=== PATIENT | female | born 1950 | race Caucasian/White ===

== ENCOUNTER → 2017-12-05 | Outpatient (CLI) | payer MEDICARE ==
--- NOTE | 2017-12-05 12:18 | BD ---
EXAMINATION TYPE: Axial Bone Density DATE OF EXAM: 12/05/2017 COMPARISON: 07/15/2015 CLINICAL HISTORY: Postmenopausal female. Osteoporosis screening. Height: 52.7 IN Weight: 189 LBS FRAX RISK QUESTIONS: Alcohol (3 or more units per day): NO Family History (Parent hip fracture): NO Glucocorticoids (More than 3mos): NO (Ex: prednisone, prednisolone, methylprednisolone, dexamethasone, and hydrocortisone). History of Fracture in Adulthood: NO Secondary Osteoporosis: 1. Type 1 Diabetes: NO 2. Hyperthyroidism: NO 3. Menopause before 45: NO AGE 48 4. Malnutrition: NO 5. Chronic liver disease: NO Rheumatoid Arthritis: NO Current Tobacco Use: NO RISK FACTORS HISTORY OF: Active: YES Postmenopausal woman: AGE 48 MEDICATIONS: Thyroid Medications: YES Which medication: Levothyroxine How Lon YEARS Additional Medications: LEVOTHYROXINE, BLOOD PRESSURE MEDS, RED YEAST RICE, COQ10, KRILL OIL, 81 MG A SPIRIN, EXAM MEASUREMENTS: Bone mineral densitometry was performed using the [employer] System. Bone mineral density as measured about the Lumbar spine is: ----- L1-L4(G/cm2): 1.239 T Score Values are as follows: ----- L2: 0.1 ----- L3: 0.8 ----- L4: 0.2 ----- L1-L4: 0.5 Bone mineral density has: Increased 2.0% since study of: 07/15/2015 Bone mineral density about the R hip (g/cm2): 1.042 Bone mineral density about the L hip (g/cm2): 1.009 T Score values are as follows: -----R Neck: 0.0 -----L Neck: -0.2 -----R Total: 0.6 -----L Total: 0.8 Bone mineral density has: Decreased -1.0% since study of: 07/15/2015 IMPRESSION: Normal (Values between +1 and -1 indicate normal bone mass). Consider repeating this study in 5 year s or sooner if there is some new clinical indication. NOTE: T-SCORE=SD OF THE YOUNG ADULT MEAN.
--- NOTE | 2017-12-06 09:00 | MM ---
Reason for exam: screening (asymptomatic). Last mammogram was performed 1 year and 4 months ago. History: Patient is postmenopausal and history of other cancer. Physical Findings: A clinical breast exam by your physician is recommended on an annual basis and results should be correlated with mammographic findings. MG 3D Screening Mammo W/Cad Bilateral CC and MLO view(s) were taken. Prior study comparison: July 28, 2016, bilateral MG 3d screening mammo w/cad. July 15, 2015, bilateral MG screening mammo w CAD. There are scattered fibroglandular densities. There is chronic nodularity bilaterally. There is no discrete abnormality. ASSESSMENT: Benign, BI-RAD 2 RECOMMENDATION: Routine screening mammogram of both breasts in 1 year.
== END | disposition home or self-care (01) ==
LOC: RADMAMWWP 10:13
PROVIDERS: ATTEND Family Medicine
DX: Z12.31 Encounter for screening mammogram for malignant neoplasm of breast (principal); Z78.0 Asymptomatic menopausal state
CPT/HCPCS: 77063; 77067; 77080

== ENCOUNTER → 2018-04-29 | Outpatient (CLI) | payer MEDICARE ==
--- NOTE | 2018-04-29 12:52 | XR ---
EXAMINATION TYPE: XR knee complete RT DATE OF EXAM: 04/29/2018 COMPARISON: NONE HISTORY: Pain TECHNIQUE: 3 views are submitted. FINDINGS: There is narrowing the medial compartment knee joint and patellofemoral with hypertrophic spurring. T iny amount of fluid in suprapatellar bursa.. Osseous structures are intact. No acute fracture seen. IMPRESSION: 1. Correlate for osteoarthritis.
--- NOTE | 2018-04-29 12:54 | XR ---
EXAM TYPE: LUMBAR SPINE X RAY SERIES COMPARISON: 04/06/2015 HISTORY: Back pain TECHNIQUE: 4 views are submitted. FINDINGS: Alignment is anatomic. The pedicles are intact. The transverse processes are intact. There is post surgical change in the right upper quadrant. Hypertrophic spurring at nearly all levels. Degenerative disc disease at all levels with most marked findings at L4-5 and L5-S1 with facet arthropathy. There is a minimal anterolisthesis of L5 on S1. IMPRESSION: 1. Multilevel degenerative disc disease and facet arthropathy with minimal grade 1 anterolisthesis L5 on S1 appears similar to the prior exam. 2. Right upper quadrant calcifications may represent bowel content. Renal stone not excluded..
== END | disposition home or self-care (01) ==
LOC: RADXRMAIN 11:28
PROVIDERS: ATTEND Family Medicine
DX: M51.16 Intervertebral disc disorders with radiculopathy, lumbar region (principal); M46.96 Unspecified inflammatory spondylopathy, lumbar region; M17.11 Unilateral primary osteoarthritis, right knee
CPT/HCPCS: 72100

== ENCOUNTER → 2019-01-07 | Outpatient (CLI) | payer MEDICARE ==
--- NOTE | 2019-01-08 13:57 | MM ---
Reason for exam: screening (asymptomatic). Last mammogram was performed 1 year and 1 month ago. History: Patient is postmenopausal and history of other cancer. Physical Findings: A clinical breast exam by your physician is recommended on an annual basis and results should be correlated with mammographic findings. MG 3D Screening Mammo W/Cad Bilateral CC and MLO view(s) were taken. Prior study comparison: December 05, 2017, bilateral MG 3d screening mammo w/cad. July 28, 2016, bilateral MG 3d screening mammo w/cad. There are scattered fibroglandular densities. No suspicious abnormality. No significant new finding when compared to prior studies. ASSESSMENT: Negative, BI-RAD 1 RECOMMENDATION: Routine screening mammogram of both breasts in 1 year.
== END | disposition home or self-care (01) ==
LOC: RADMAMWWP 12:30
PROVIDERS: ATTEND Family Medicine
DX: Z12.31 Encounter for screening mammogram for malignant neoplasm of breast (principal)
CPT/HCPCS: 77063; 77067

== ENCOUNTER → 2020-03-10 | Outpatient (CLI) | payer MEDICARE ==
--- NOTE | 2020-03-10 16:10 | BD ---
EXAMINATION TYPE: Axial Bone Density DATE OF EXAM: 03/10/2020 COMPARISON: 12/05/2017 CLINICAL HISTORY: 69-year-old female postmenopausal screening Height: 62.5 IN Weight: 192 LBS RISK FACTORS HISTORY OF: Active: YES Postmenopausal woman: AGE 48 Take estrogen and/or progesterone medications: NOT NOW How long: AGE 50-51 MEDICATIONS: Thyroid Medications: YES Which medication: Levothyroxine How Lon YEARS Additional Medications: VIT D, LEVOTHYROXINE, BLOOD PRESSURE, OMEPRAZOLE, HAIR SKIN AND NAILS, 81 ASP IRIN, KRILL OIL, COQ10, EXAM MEASUREMENTS: Bone mineral densitometry was performed using the [employer] System. Bone mineral density as measured about the Lumbar spine is: ----- L1-L4(G/cm2): 1.179 T Score Values are as follows: ----- L2: 0.2 ----- L3: 0.0 ----- L4: -0.4 ----- L1-L4: 0.0 Bone mineral density has: Decreased -4.1% since study of: 12/05/2017 Bone mineral density about the R hip (g/cm2): 1.045 Bone mineral density about the L hip (g/cm2): 0.930 T Score values are as follows: -----R Neck: 0.0 -----L Neck: -0.8 -----R Total: 0.1 -----L Total: 0.1 Bone mineral density has: Decreased -6.6% since study of: 12/05/2017 IMPRESSION: Normal (Values between +1 and -1 indicate normal bone mass). Consider repeating this study in 5 year s or sooner if there is some new clinical indication. NOTE: T-SCORE=SD OF THE YOUNG ADULT MEAN.
--- NOTE | 2020-03-12 08:51 | MM ---
Reason for exam: screening (asymptomatic). Last mammogram was performed 1 year and 2 months ago. History: Patient is postmenopausal and history of other cancer. Physical Findings: A clinical breast exam by your physician is recommended on an annual basis and results should be correlated with mammographic findings. MG 3D Screening Mammo W/Cad Bilateral CC and MLO view(s) were taken. Prior study comparison: January 07, 2019, bilateral MG 3d screening mammo w/cad. December 05, 2017, bilateral MG 3d screening mammo w/cad. There are scattered fibroglandular densities. There is chronic nodularity in the left breast. Tiny less than 5mm density is new right breast 9 o'clock but shows no suspicious mass on 3D. 6 month follow up recommended. ASSESSMENT: Probably benign, BI-RAD 3 RECOMMENDATION: Follow-up diagnostic mammogram of the right breast in 6 months. (3D)
== END | disposition home or self-care (01) ==
LOC: RADMAMWWP 12:55
PROVIDERS: ATTEND Family Medicine
DX: Z12.31 Encounter for screening mammogram for malignant neoplasm of breast (principal); Z78.0 Asymptomatic menopausal state
CPT/HCPCS: 77063; 77067; 77080

== ENCOUNTER → 2020-09-06 | Outpatient (CLI) | payer MEDICARE ==
--- NOTE | 2020-09-06 10:03 | MM ---
Reason for exam: follow-up at short interval from prior study. Last mammogram was performed 6 months ago. History: Patient is postmenopausal and history of other cancer. Physical Findings: Nurse did not find any significant physical abnormalities on exam. MG 3D Diag Mammo W/Cad RT CC and MLO view(s) were taken of the right breast. Prior study comparison: March 10, 2020, bilateral MG 3d screening mammo w/cad. January 07, 2019, bilateral MG 3d screening mammo w/cad. There are scattered fibroglandular densities. Nodularity lateral right breast at a middle depth measures 5mm and is stable for 6 months. Smaller nodularity is noted on older priors on 3D images. This area has become more pronounced but again is stable for 6 months. These results were verbally communicated with the patient and result sheet given to the patient on 09/06/20. ASSESSMENT: Probably benign, BI-RAD 3 RECOMMENDATION: Follow-up diagnostic mammogram of both breasts in 6 months.
== END | disposition home or self-care (01) ==
LOC: RADMAMWWP 08:45
PROVIDERS: ATTEND Family Medicine
DX: R92.8 Other abnormal and inconclusive findings on diagnostic imaging of breast (principal)
CPT/HCPCS: 77065; G0279; 77061

== ENCOUNTER → 2021-03-16 | Outpatient (CLI) | payer MEDICARE ==
--- NOTE | 2021-03-17 09:06 | MM ---
Reason for exam: follow-up at short interval from prior study. Last mammogram was performed 6 months ago. History: Patient is postmenopausal and has history of other cancer at age 65. Physical Findings: Nurse did not find any significant physical abnormalities on exam. MG 3D Diag Mammo W/Cad RIZWANA Bilateral CC and MLO view(s) were taken. Prior study comparison: September 06, 2020, right breast MG 3d diag mammo w/cad RT. March 10, 2020, bilateral MG 3d screening mammo w/cad. There are scattered fibroglandular densities. There is no discrete abnormality. These results were verbally communicated with the patient and result sheet given to the patient on 03/16/21. ASSESSMENT: Negative, BI-RAD 1 RECOMMENDATION: Routine screening mammogram of both breasts in 1 year.
== END | disposition home or self-care (01) ==
LOC: RADMAMWWP 12:51
PROVIDERS: ATTEND Family Medicine
DX: R92.8 Other abnormal and inconclusive findings on diagnostic imaging of breast (principal)
CPT/HCPCS: 77066; G0279; 77062

== ENCOUNTER → 2021-05-21 | Outpatient (CLI) | payer MEDICARE | END | disposition home or self-care (01) | LOC: RADMRIMAIN 12:49 | PROVIDERS: ATTEND Family Medicine | DX: Z53.9 Procedure and treatment not carried out, unspecified reason (principal) ==

== ENCOUNTER → 2021-05-24 | Outpatient (CLI) | payer MEDICARE ==
--- NOTE | 2021-05-24 12:52 | XR ---
Left ankle HISTORY: Pain, remote history of fracture 3 views of the left ankle, no comparisons Distortion of the distal fibula and tibia at the diaphyseal levels is likely due to remote trauma. Th ere is mild soft tissue swelling. Alignment, joint spaces, bone mineralization are maintained. There is a plantar calcaneal spur. Spurring at the tibiotalar joint. IMPRESSION: Mild soft tissue swelling. Osteoarthritis. Remote trauma. Plantar spur.
--- NOTE | 2021-05-24 13:00 | XR ---
Left knee HISTORY: Left knee pain 3 views of the left knee There is marginal spurring and joint space loss especially medial compartment, patellofemoral joint. Alignment and bone mineralization are maintained. No fracture or dislocation, no evident joint effusi on. IMPRESSION: Osteoarthritis.
== END | disposition home or self-care (01) ==
LOC: RADXRMAIN 10:56
PROVIDERS: ATTEND Family Medicine
DX: M17.12 Unilateral primary osteoarthritis, left knee (principal); M19.072 Primary osteoarthritis, left ankle and foot

== ENCOUNTER 2021-07-19 10:09 | Day surgery (SDC) | payer MEDICARE ==
[2021-07-15 12:16] VITALS: BMI 32.5
[~2021-07-19 10:09] MED LIST: LACTATED RINGERS 1,000 ML IV SCH; LIDOCAINE 1% (10MG/ML) FOR IV START INTRADERMA PRN
[2021-07-19 10:51] VITALS: TEMP 98.1
[2021-07-19] MEDS ORDERED: PROPOFOL 10 MG/ML 20 ML VIAL IV ONE (11:25)
--- NOTE | 2021-07-19 11:28 | P.GSHP ---
History of Present Illness H&P Date: 07/19/21 Chief Complaint: Abnormal stool test Patient here today for colonoscopy. Patient had recent stool studies showing an abnormal result. She does not see any active bleeding. No constipation or diarrhea. Family history of bowel cancer in her father. Last colonoscopy 10 years ago normal. Past Medical History Past Medical History: Cancer, GERD/Reflux, Hypertension, Osteoarthritis (OA), Thyroid Disorder Additional Past Medical History / Comment(s): loose stools, irregular bowel movements, hx skin cancer, History of Any Multi-Drug Resistant Organisms: None Reported Past Surgical History: Section, Cholecystectomy Additional Past Surgical History / Comment(s): sinus surgery Past Anesthesia/Blood Transfusion Reactions: No Reported Reaction Smoking Status: Never smoker - Past Family History Father Family Medical History: Cancer Mother Additional Family Medical History / Comment(s): brain aneurysm Medications and Allergies Home Medications Medication Instructions Recorded Confirmed Type Aspirin [Adult Low Dose Aspirin EC] 81 mg PO DAILY 07/15/21 07/19/21 History Cholecalciferol [Vitamin D3 (25 50 mcg PO DAILY 07/15/21 07/19/21 History Mcg = 1000 Iu)] Glucosamine/Chondr Lemos A Sod [Osteo 1 each PO DAILY 07/15/21 07/19/21 History Bi-Flex Caplet] Krill Oil 500 mg PO DAILY 07/15/21 07/19/21 History Levothyroxine Sodium [Synthroid] 50 mcg PO DAILY 07/15/21 07/19/21 History Melatonin 9 mg PO HS 07/15/21 07/19/21 History Omeprazole [PriLOSEC] 20 mg PO AC-BRKFST 07/15/21 07/19/21 History Psyllium Husk (with Sugar) 1 applicate PO DAILY 07/15/21 07/19/21 History [Metamucil Powder] Ubidecarenone [Co Q-10] 200 mg PO DAILY 07/15/21 07/19/21 History amLODIPine [Norvasc] 5 mg PO DAILY 07/15/21 07/19/21 History lisinopriL [Zestril] 20 mg PO DAILY 07/15/21 07/19/21 History Allergies Allergy/AdvReac Type Severity Reaction Status Date / Time petty Allergy mouth sores Verified 07/19/21 10:45 Penicillins Allergy Rash/Hives Verified 07/19/21 10:45 Sulfa (Sulfonamide Allergy Rash/Hives Verified 07/19/21 10:45 Antibiotics) benzocaine AdvReac Swelling Verified 07/19/21 10:45 Surgical - Exam Vital Signs Temp Pulse Resp BP Pulse Ox 98.1 F 90 16 131/66 96 07/19/21 10:46 07/19/21 10:46 07/19/21 10:46 07/19/21 10:46 07/19/21 10:46 Physical exam: General: Well-developed, well-nourished HEENT: Normocephalic, sclerae nonicteric Abdomen: Nontender, nondistended Extremities: No edema Neuro: Alert and oriented Assessment and Plan (1) Abnormal stool test Narrative/Plan: Will proceed with colonoscopy at this time Current Visit: Yes Status: Acute Code(s): R19.5 - OTHER FECAL ABNORMALITIES SNOMED Code(s): 647026893
--- NOTE | 2021-07-19 11:48 | P.PCN ---
Date of Procedure: 07/19/21 Procedure(s) Performed: PREOPERATIVE DIAGNOSIS: Abnormal stool study POSTOPERATIVE DIAGNOSIS: Polyps, diverticulosis, hemorrhoids PROCEDURE: Colonoscopy with snare polypectomy ANESTHESIA: MAC SURGEON: Messi Mota M.D. SPECIMENS: Descending and sigmoid colon polyp ENDOSCOPIC PROCEDURE: The patient was placed on the endoscopy table in the left decubitus position. The Olympus colonoscope was inserted into the anus and passed under direct visualization to the base of the cecum. The appendiceal orifice was visualized. From that point the scope was slowly withdrawn inspecting all surfaces carefully. There were no neoplastic inflammatory or polypoid lesions throughout the cecum, ascending, and transverse colon. In the descending colon a small polyp was seen and removed using the snare with cautery technique. Another small polyp was seen in the sigmoid colon and removed using the snare with cautery technique. The remainder of the sigmoid and rectum was normal. There was moderate scattered diverticulosis. The patient had small internal and external hemorrhoids without any evidence of recent or active bleeding. The patient was taken to the recovery room in stable condition per anesthesia guidelines. RECOMMENDATIONS: Await biopsy results. Resume diet. Anticipate repeat colonoscopy 5 years.
[2021-07-19 12:10] VITALS: BP 107/68; PULSE 70; RESP 20
== END 2021-07-19 12:48 | disposition home or self-care (01) ==
LOC: ORWHC2ENDO 10:09
PROVIDERS: ATTEND Surgery
DX: K57.90 Diverticulosis of intestine, part unspecified, without perforation or abscess without bleeding (principal); K64.9 Unspecified hemorrhoids
CPT/HCPCS: 45385; J2704; 88305

== ENCOUNTER → 2022-04-04 | Outpatient (CLI) | payer MEDICARE ==
--- NOTE | 2022-04-07 12:59 | BD ---
EXAMINATION TYPE: Axial Bone Density DATE OF EXAM: 04/06/2022 COMPARISON: NONE CLINICAL HISTORY: 71 years year old Female. ICD-10 CODE: Z78.0 ASYMPTOMATIC MENOPAUSAL STATE Height: 63 Weight: 195 FRAX RISK QUESTIONS: Alcohol (3 or more units per day): no Family History (Parent hip fracture): no Glucocorticoids (More than 3mos): no (Ex: prednisone, prednisolone, methylprednisolone, dexamethasone, and hydrocortisone). History of Fracture in Adulthood: yes Secondary Osteoporosis: 1. Type 1 Diabetes: no 2. Hyperthyroidism: no 3. Menopause before 45: no 4. Malnutrition: no 5. Chronic liver disease: no Rheumatoid Arthritis: no Current Tobacco Use: no RISK FACTORS HISTORY OF: Surgery to Spine/Hip(right/left)/Wrist (right/left): no Family History of Osteoporosis: no Active: no Diet low in dairy products/other sources of calcium: no Postmenopausal woman: yes Lost more than 2 inches in height since high school: no MEDICATIONS: Thyroid Medications: levothyroxine How Long: years Additional History: EXAM MEASUREMENTS: Bone mineral densitometry was performed using the [employer] System. Bone mineral density as measured about the Lumbar spine is: ----- L1-L4(G/cm2): 1.208 T Score Values are as follows: ----- L1: 0.8 ----- L2: 0.1 ----- L3: 0.1 ----- L4: -0.1 ----- L1-L4: 0.2 Bone mineral density has: decreased -3.3 % since study of: 12.05.2017 Bone mineral density about the R hip (g/cm2): 0.892 Bone mineral density about the L hip (g/cm2): 0.946 T Score values are as follows: -----R Neck: -1.0 -----L Neck: -0.7 -----R Total: -0.3 -----L Total: 0.4 Bone mineral density has: decreased -7.1 % since study of: 12.05.2017 FRAX%s: The graph provided illustrates a 13.9% chance for a major osteoporotic fx and a 1.7% chance f or the hips probability for fx in 10 years time. IMPRESSION: Normal (Values between +1 and -1 indicate normal bone mass). Consider repeating this study in 5 year s or sooner if there is some new clinical indication. NOTE: T-SCORE=SD OF THE YOUNG ADULT MEAN.
== END | disposition home or self-care (01) ==
LOC: RADMAMWWP 21:56
PROVIDERS: ATTEND Family Medicine
DX: Z12.31 Encounter for screening mammogram for malignant neoplasm of breast (principal); Z78.0 Asymptomatic menopausal state
CPT/HCPCS: 77063; 77067; 77080

== ENCOUNTER → 2023-04-05 | Outpatient (CLI) | payer MEDICARE ==
--- NOTE | 2023-04-06 09:02 | MM ---
Reason for Exam: Screening (asymptomatic). Last screening mammogram was performed 12 month(s) ago. Patient History: Menarche at age 10. First Full-Term at age 26. Postmenopausal. Other cancer, age 65. Risk Values: Armida 5 year model risk: 2.0%. NCI Lifetime model risk: 4.5%. Prior Study Comparison: 09/06/2020 Right Diagnostic Mammogram, [facility]. 03/16/2021 Bilateral Diagnostic Mammogram, [facility]. 04/04/2022 Bilateral MG 3D screening mammo w/cad, [facility]. Tissue Density: The breast tissue is almost entirely fat. Findings: Analyzed By CAD. There is no suspicious group of microcalcifications or new suspicious mass. Benign-appearing calcifications bilaterally. Overall Assessment: Benign, BI-RAD 2 Management: Screening Mammogram of both breasts in [address] [facility] will attempt to contact patient to return for supplemental views and ultrasound if indicated. Patient should continue monthly self-breast exams. A clinical breast exam by your physician is recommended on an annual basis. This exam should not preclude additional follow-up of suspicious palpable abnormalities. Note on Armida scores and lifetime risk: 1. A Armida score greater than 3% is considered moderate risk. If this is the case, consider specialist referral to assess eligibility for a risk reducing agent. 2. If overall lifetime risk for the development of breast cancer is 20% or higher, the patient may qualify for future screening with alternating mammogram and breast MRI. Electronically signed and approved by: Michael Pham DO
== END | disposition home or self-care (01) ==
LOC: RADMAMWWP 10:03
PROVIDERS: ATTEND Family Medicine
DX: Z12.31 Encounter for screening mammogram for malignant neoplasm of breast (principal); Z78.0 Asymptomatic menopausal state
CPT/HCPCS: 77063; 77067

== ENCOUNTER → 2023-07-02 | Outpatient (CLI) | payer MEDICARE ==
--- NOTE | 2023-07-02 11:21 | XR ---
EXAMINATION TYPE: XR ankle complete RT DATE OF EXAM: 07/02/2023 COMPARISON: NONE HISTORY: Pain FINDINGS: Three views of the ankle demonstrate the ankle mortise to be intact and symmetric. The joint spaces are preserved. The osseous structures are intact. A calcaneal spur. Bony density along the dorsal t alus. IMPRESSION: 1. On the lateral view there is a linear bony density along the dorsum of the talus. Chip or avulsion fracture in the differential diagnosis. Correlate with point tenderness. Consider follow-up CT scan.
--- NOTE | 2023-07-02 11:26 | XR ---
EXAMINATION TYPE: XR foot complete RT DATE OF EXAM: 07/02/2023 COMPARISON: NONE HISTORY: Pain TECHNIQUE: Three views are submitted. FINDINGS: The osseous structures are intact. There is no acute fracture or dislocation. Hypertrophic first d igit MTP joint arthropathy. Hammertoe deformities noted. Pes planus deformity with moderate size calc aneal spur. The bony density along the dorsum of the talus. Limited assessment of the phalanx of the fourth and fifth digit due to positioning. Diffuse osteopenia. Small spur involving the base of fifth metatarsal. IMPRESSION: 1. Bony density along the dorsum of the talus suspicious for chip or avulsion fracture. Correlate wit h point tenderness.
--- NOTE | 2023-07-02 11:28 | XR ---
EXAMINATION TYPE: XR wrist complete RT DATE OF EXAM: 07/02/2023 COMPARISON: NONE HISTORY: Pain TECHNIQUE: Four views submitted. FINDINGS: The osseous structures are intact. Diffuse osteopenia. Severe arthropathy first carpometacarpal and t rapezium scaphoid joints. Mild radiocarpal joint narrowing.. IMPRESSION: 1. No definite acute fracture or dislocation if symptoms persist, follow-up study in 7 to 10 days wo uld be suggested
== END | disposition home or self-care (01) ==
LOC: RADXRMAIN 10:52
PROVIDERS: ATTEND Family Medicine
DX: M25.571 Pain in right ankle and joints of right foot (principal); M25.531 Pain in right wrist

== ENCOUNTER 2023-11-14 11:05 | Emergency (ER) | payer MEDICARE ==
--- NOTE | 2023-11-14 11:15 | ED ---
Abdominal Pain HPI - General Source: patient, family, RN notes reviewed Mode of arrival: wheelchair Limitations: no limitations <Michelle Calvillo - Last Filed: 11/14/23 11:14> - General Source: patient, family, RN notes reviewed Mode of arrival: wheelchair <Liliana Ribeiro - Last Filed: 11/14/23 16:46> - General Stated Complaint: Abd Pain Time Seen by Provider: 11/14/23 11:14 - History of Present Illness Initial Comments: Quick note: 72-year-old female presented to the ER with chief complaint of abdominal pain. She states that started around 8 AM. She also was endorsing nausea and vomiting. Denies any fevers. (Michelle Calvillo) 72-year-old female with history of hypertension presenting with abdominal pain. States that she woke up this morning and shortly after began to experience nausea and vomiting. States the pain is in the bilateral lower abdomen and radiates to the back. States the pain is about an 8 out of 10 currently. She also reports she feels as though she is urinating less than normal today. Last bowel movement was today but was small and hard. Patient reports history of cholecystectomy. (Liliana Ribeiro) - Related Data Home Medications Medication Instructions Recorded Confirmed Aspirin [Adult Low Dose Aspirin EC] 81 mg PO DAILY 07/15/21 07/19/21 Cholecalciferol [Vitamin D3 (25 50 mcg PO DAILY 07/15/21 07/19/21 Mcg = 1000 Iu)] Glucosamine/Chondr Lemos A Sod [Osteo 1 each PO DAILY 07/15/21 07/19/21 Bi-Flex Caplet] Krill Oil 500 mg PO DAILY 07/15/21 07/19/21 Levothyroxine Sodium [Synthroid] 50 mcg PO DAILY 07/15/21 07/19/21 Melatonin 9 mg PO HS 07/15/21 07/19/21 Omeprazole [PriLOSEC] 20 mg PO AC-BRKFST 07/15/21 07/19/21 Psyllium Husk (with Sugar) 1 applicate PO DAILY 07/15/21 07/19/21 [Metamucil Powder] Ubidecarenone [Co Q-10] 200 mg PO DAILY 07/15/21 07/19/21 amLODIPine [Norvasc] 5 mg PO DAILY 07/15/21 07/19/21 lisinopriL [Zestril] 20 mg PO DAILY 07/15/21 07/19/21 Previous Rx's Medication Instructions Recorded Ondansetron Odt [Zofran Odt] 4 mg PO Q8HR PRN #10 tab 11/14/23 Tamsulosin [Flomax] 0.4 mg PO DAILY #7 cap 11/14/23 Allergies Allergy/AdvReac Type Severity Reaction Status Date / Time petty Allergy mouth sores Verified 11/14/23 11:47 Penicillins Allergy Rash/Hives Verified 11/14/23 11:47 Sulfa (Sulfonamide Allergy Rash/Hives Verified 11/14/23 11:47 Antibiotics) benzocaine AdvReac Swelling Verified 11/14/23 11:47 Review of Systems ROS Other: All systems not noted in ROS Statement are negative. <Michelle Calvillo - Last Filed: 11/14/23 11:14> ROS Other: All systems not noted in ROS Statement are negative. <Liliana Ribeiro - Last Filed: 11/14/23 16:46> ROS Statement: Those systems with pertinent positive or pertinent negative responses have been documented in the HPI. General Exam <Michelle Calvillo - Last Filed: 11/14/23 11:14> General appearance: alert, in no apparent distress Cardiovascular Exam: Present: regular rate, normal rhythm, normal heart sounds. Absent: systolic murmur, diastolic murmur, rubs, gallop, clicks GI/Abdominal exam: Present: soft, normal bowel sounds. Absent: distended, tenderness, guarding, rebound, rigid Back exam: Absent: CVA tenderness (R), CVA tenderness (L) Neurological exam: Present: alert, oriented X3 Psychiatric exam: Present: normal affect, normal mood Skin exam: Present: warm, dry, intact, normal color. Absent: rash <Liliana Ribeiro - Last Filed: 11/14/23 16:46> - General Exam Comments Initial Comments: Visual Physical Exam Vital signs reviewed General: Diaphoretic and ill-appearing Head: Normocephalic, atraumatic Eyes: PERRLA, EOMI ENT: Airway patent Chest: Nonlabored breathing Skin: No visual rash, normal skin tone Neuro: Alert and oriented 3 Musculoskeletal: No gross abnormalities (Michelle Calvillo) Course Vital Signs 11/14/23 11/14/23 11:41 13:26 Temperature 97.7 F Pulse Rate 64 93 Respiratory 18 16 Rate Blood Pressure 116/87 133/78 O2 Sat by Pulse 97 96 Oximetry Medical Decision Making <Michelle Calvillo - Last Filed: 11/14/23 11:14> - Lab Data Result diagrams: 11/14/23 12:24 11/14/23 12:24 - EKG Data -: EKG Interpreted by Me <Liliana Ribeiro - Last Filed: 11/14/23 16:46> - Medical Decision Making I performed the quick note portion of this chart. Electronically signed by Michelle Calvillo PA-C (Michelle Calvillo) Was pt. sent in by a medical professional or institution (MIRELLA Sierra, CLARIFICATION OPERATOR, urgent care, hospital, or detention...) When possible be specific @ -[No] Did you speak to anyone other than the patient for history (EMS, parent, family, police, friend...)? What history was obtained from this source @ -[No] Did you review nursing and triage notes (agree or disagree)? Why? @ -[I reviewed and agree with nursing and triage notes] Were old charts reviewed (outside hosp., previous admission, EMS record, old EKG, old radiological studies, urgent care reports/EKG's, detention records)? Report findings @ -[No old charts were reviewed] Differential Diagnosis (chest pain, altered mental status, abdominal pain women, abdominal pain men, vaginal bleeding, weakness, fever, dyspnea, syncope, headache, dizziness, GI bleed, back pain, seizure, CVA, palpatations, mental health, musculoskeletal)? @ -Differential Abdominal Pain Women: Appendicitis, Cholecystitis, diverticulosis, ischemic bowel, pancreatitis, hepatitis, UTI, gastroenteritis, AAA, incarcerated hernia, bowel obstruction, constipation, inflammatory bowel, hepatitis, peptic ulcer disease, splenic infarction, perforated viscus, vulvitis, ovarian torsion, PID, kidney stone, placenta abruption, this is not meant to be an all-inclusive list EKG interpreted by me (3pts min.). @ -[As above] X-rays interpreted by me (1pt min.). @ -[None done] CT interpreted by me (1pt min.). @ -CT abdomen pelvis positive for 6 mm right-sided kidney stone U/S interpreted by me (1pt. min.). @ -[None done] What testing was considered but not performed or refused? (CT, X-rays, U/S, labs)? Why? @ -[None] What meds were considered but not given or refused? Why? @ -Patient offered narcotics for pain patient declines. Discussed preference for narcotics over Toradol due to patient has been, patient shows understanding of risks and prefers Toradol and Tylenol. Did you discuss the management of the patient with other professionals (professionals i.e. , PA, CLARIFICATION OPERATOR, lab, RT, psych nurse, social work associate, program schedule clerk, teacher, chairman & chief executive officer, case filler)? Give summary @ -[No] Was smoking cessation discussed for >3mins.? @ -[No] Was critical care preformed (if so, how long)? @ -[No] Were there social determinants of health that impacted care today? How? (Homelessness, low income, unemployed, alcoholism, drug addiction, transportation, low edu. Level, literacy, decrease access to med. care, long-term, rehab)? @ -[No] Was there de-escalation of care discussed even if they declined (Discuss DNR or withdrawal of care, Hospice)? DNR status @ -[No] What co-morbidities impacted this encounter? (DM, HTN, Smoking, COPD, CAD, Cancer, CVA, ARF, Chemo, Hep., AIDS, mental health diagnosis, sleep apnea, morbid obesity)? @ -[None] Was patient admitted / discharged? Hospital course, mention meds given and route, prescriptions, significant lab abnormalities, going to OR and other pertinent info. @ -Patient was discharged. Patient was seen and evaluated for abdominal pain, nausea, and vomiting. CT revealed 6 mm right-sided kidney stone. Labs remarkable for white blood cell count 15.8 and lactic acid 3.7. Urine was positive for blood but negative for bacteria. Patient was given Reglan, Tylenol, Toradol, and IV fluids. Patient is tolerating orals and symptoms have significantly improved. Repeat lactic acid decreased to 2.5 after 1 L of fluid. Patient given total of 2 L of IV fluid. Strict return precautions discussed. Given referral to urology. Patient discharged in stable condition. Case discussed with Dr. Truong. Undiagnosed new problem with uncertain prognosis? @ -[No] Drug Therapy requiring intensive monitoring for toxicity (Heparin, Nitro, Insulin, Cardizem)? @ -[No] Were any procedures done? @ -[No] Diagnosis/symptom? @ -Acute nephrolithiasis Acute, or Chronic, or Acute on Chronic? @ -Acute Uncomplicated (without systemic symptoms) or Complicated (systemic symptoms)? @ -Uncomplicated Side effects of treatment? @ -[No] Exacerbation, Progression, or Severe Exacerbation? @ -[No] Poses a threat to life or bodily function? How? (Chest pain, USA, MT, pneumonia, PE, COPD, DKA, ARF, appy, cholecystitis, CVA, Diverticulitis, Homicidal, Suicidal, threat to staff... and all critical care pts) @ -[No] (Liliana Ribeiro) - Lab Data Lab Results 11/14/23 11/14/23 11/14/23 Range/Units 12:24 12:24 12:24 WBC 15.8 H (3.8-10.6) k/uL RBC 5.11 (3.80-5.40) m/uL Hgb 15.4 (11.4-16.0) gm/dL Hct 48.0 H (34.0-46.0) % MCV 93.9 (80.0-100.0) fL MCH 30.1 (25.0-35.0) pg MCHC 32.1 (31.0-37.0) g/dL RDW 12.5 (11.5-15.5) % Plt Count 248 (150-450) k/uL MPV 9.2 Neutrophils % 85 % Lymphocytes % 10 % Monocytes % 4 % Eosinophils % 0 % Basophils % 0 % Neutrophils # 13.3 H (1.3-7.7) k/uL Lymphocytes # 1.6 (1.0-4.8) k/uL Monocytes # 0.6 (0-1.0) k/uL Eosinophils # 0.1 (0-0.7) k/uL Basophils # 0.0 (0-0.2) k/uL Sodium 139 (137-145) mmol/L Potassium 3.8 (3.5-5.1) mmol/L Chloride 106 (98-107) mmol/L Carbon Dioxide 21 L (22-30) mmol/L Anion Gap 12 mmol/L BUN 13 (7-17) mg/dL Creatinine 0.64 (0.52-1.04) mg/dL Est GFR (CKD-EPI)AfAm >90 (>60 ml/min/1.73 sqM) Est GFR (CKD-EPI)NonAf 88 (>60 ml/min/1.73 sqM) Glucose 162 H (74-99) mg/dL Lactic Ac Sepsis Rflx Plasma Lactic Acid Pio 3.7 H* (0.7-2.0) mmol/L Calcium 9.3 (8.4-10.2) mg/dL Total Bilirubin 1.2 (0.2-1.3) mg/dL AST 40 H (14-36) U/L ALT 32 (4-34) U/L Alkaline Phosphatase 103 (38-126) U/L Total Protein 8.0 (6.3-8.2) g/dL Albumin 4.4 (3.5-5.0) g/dL Amylase 50 (30-110) U/L Lipase 140 (23-300) U/L Urine Color Urine Appearance (Clear) Urine pH (5.0-8.0) Ur Specific Venus (1.001-1.035) Urine Protein (Negative) Urine Glucose (UA) (Negative) Urine Ketones (Negative) Urine Blood (Negative) Urine Nitrite (Negative) Urine Bilirubin (Negative) Urine Urobilinogen (<2.0) mg/dL Ur Leukocyte Esterase (Negative) Urine RBC (0-5) /hpf Urine WBC (0-5) /hpf 11/14/23 11/14/23 11/14/23 Range/Units 12:46 13:41 15:07 WBC (3.8-10.6) k/uL RBC (3.80-5.40) m/uL Hgb (11.4-16.0) gm/dL Hct (34.0-46.0) % MCV (80.0-100.0) fL MCH (25.0-35.0) pg MCHC (31.0-37.0) g/dL RDW (11.5-15.5) % Plt Count (150-450) k/uL MPV Neutrophils % % Lymphocytes % % Monocytes % % Eosinophils % % Basophils % % Neutrophils # (1.3-7.7) k/uL Lymphocytes # (1.0-4.8) k/uL Monocytes # (0-1.0) k/uL Eosinophils # (0-0.7) k/uL Basophils # (0-0.2) k/uL Sodium (137-145) mmol/L Potassium (3.5-5.1) mmol/L Chloride (98-107) mmol/L Carbon Dioxide (22-30) mmol/L Anion Gap mmol/L BUN (7-17) mg/dL Creatinine (0.52-1.04) mg/dL Est GFR (CKD-EPI)AfAm (>60 ml/min/1.73 sqM) Est GFR (CKD-EPI)NonAf (>60 ml/min/1.73 sqM) Glucose (74-99) mg/dL Lactic Ac Sepsis Rflx Y Plasma Lactic Acid Pio 2.5 H* (0.7-2.0) mmol/L Calcium (8.4-10.2) mg/dL Total Bilirubin (0.2-1.3) mg/dL AST (14-36) U/L ALT (4-34) U/L Alkaline Phosphatase (38-126) U/L Total Protein (6.3-8.2) g/dL Albumin (3.5-5.0) g/dL Amylase (30-110) U/L Lipase (23-300) U/L Urine Color Colorless Urine Appearance Clear (Clear) Urine pH 7.5 (5.0-8.0) Ur Specific Venus 1.014 (1.001-1.035) Urine Protein Trace H (Negative) Urine Glucose (UA) Negative (Negative) Urine Ketones 2+ H (Negative) Urine Blood Moderate H (Negative) Urine Nitrite Negative (Negative) Urine Bilirubin Negative (Negative) Urine Urobilinogen <2.0 (<2.0) mg/dL Ur Leukocyte Esterase Negative (Negative) Urine RBC 137 H (0-5) /hpf Urine WBC 3 (0-5) /hpf 11/14/23 Range/Units 16:09 WBC (3.8-10.6) k/uL RBC (3.80-5.40) m/uL Hgb (11.4-16.0) gm/dL Hct (34.0-46.0) % MCV (80.0-100.0) fL MCH (25.0-35.0) pg MCHC (31.0-37.0) g/dL RDW (11.5-15.5) % Plt Count (150-450) k/uL MPV Neutrophils % % Lymphocytes % % Monocytes % % Eosinophils % % Basophils % % Neutrophils # (1.3-7.7) k/uL Lymphocytes # (1.0-4.8) k/uL Monocytes # (0-1.0) k/uL Eosinophils # (0-0.7) k/uL Basophils # (0-0.2) k/uL Sodium (137-145) mmol/L Potassium (3.5-5.1) mmol/L Chloride (98-107) mmol/L Carbon Dioxide (22-30) mmol/L Anion Gap mmol/L BUN (7-17) mg/dL Creatinine (0.52-1.04) mg/dL Est GFR (CKD-EPI)AfAm (>60 ml/min/1.73 sqM) Est GFR (CKD-EPI)NonAf (>60 ml/min/1.73 sqM) Glucose (74-99) mg/dL Lactic Ac Sepsis Rflx Plasma Lactic Acid Pio 1.8 (0.7-2.0) mmol/L Calcium (8.4-10.2) mg/dL Total Bilirubin (0.2-1.3) mg/dL AST (14-36) U/L ALT (4-34) U/L Alkaline Phosphatase (38-126) U/L Total Protein (6.3-8.2) g/dL Albumin (3.5-5.0) g/dL Amylase (30-110) U/L Lipase (23-300) U/L Urine Color Urine Appearance (Clear) Urine pH (5.0-8.0) Ur Specific Venus (1.001-1.035) Urine Protein (Negative) Urine Glucose (UA) (Negative) Urine Ketones (Negative) Urine Blood (Negative) Urine Nitrite (Negative) Urine Bilirubin (Negative) Urine Urobilinogen (<2.0) mg/dL Ur Leukocyte Esterase (Negative) Urine RBC (0-5) /hpf Urine WBC (0-5) /hpf - EKG Data EKG Comments: EKG reveals normal sinus rhythm with no ST changes. Ventricular rate 69 bpm, AR interval 157, QRS duration 117, QT/QTc 445/463 (RibeiroLiliana) Disposition <Michelle Calvillo - Last Filed: 11/14/23 11:14> Is patient prescribed a controlled substance at d/c from ED?: No Time of Disposition: 16:46 <RibeiroLiliana - Last Filed: 11/14/23 16:46> Clinical Impression: Right nephrolithiasis Disposition: HOME SELF-CARE Condition: Stable Instructions (If sedation given, give patient instructions): Kidney Stones (ED) Additional Instructions: Follow-up with urology. Please return to the Emergency Department if symptoms worsen or any other concerns. Prescriptions: Tamsulosin [Flomax] 0.4 mg PO DAILY #7 cap Ondansetron Odt [Zofran Odt] 4 mg PO Q8HR PRN #10 tab PRN Reason: Nausea Referrals: Xander Weiss MD [Primary Care Provider] - 1-2 days Kali Espinosa MD [STAFF PHYSICIAN] - 1-2 days
[2023-11-14 12:00] VITALS: TEMP 97.7
[2023-11-14 12:34] LABS: Basophils % (A) 0 %; Eosinophils # (A) 0.1 k/uL (0-0.7); Eosinophils % (A) 0 %; HGB 15.4 gm/dL (11.4-16.0); Lymphocytes # (A) 1.6 k/uL (1.0-4.8); Lymphocytes % (A) 10 %; MCH 30.1 pg (25.0-35.0); MCHC 32.1 g/dL (31.0-37.0); MCV 93.9 fL (80.0-100.0); Mean Platelet Volume 9.2; Monocytes # (A) 0.6 k/uL (0-1.0); Monocytes % (A) 4 %; Neutrophils # (A) 13.3 k/uL (1.3-7.7); Neutrophils % (A) 85 %; Platelet Count 248 k/uL (150-450); RBC 5.11 m/uL (3.80-5.40); RDW 12.5 % (11.5-15.5); WBC 15.8 k/uL (3.8-10.6)
[2023-11-14] MEDS: SODIUM CHLORIDE 0.9% 1,000 ML IV STA ×2 (12:37→15:16)
[2023-11-14] MEDS: METOCLOPRAMIDE 5 MG/ML 2 ML VIAL IVP STA ×2 (12:37→15:19)
[2023-11-14 12:45] LABS: ALT 32 U/L (4-34); AST 40 U/L (14-36); African American GFR (CKD) >90 (>60 ml/min/1.73 sqM); Albumin 4.4 g/dL (3.5-5.0); Alkaline Phosphatase 103 U/L (38-126); Amylase 50 U/L (30-110); Anion Gap 12 mmol/L; Blood Urea Nitrogen 13 mg/dL (7-17); Calcium 9.3 mg/dL (8.4-10.2); Carbon Dioxide 21 mmol/L (22-30); Chloride 106 mmol/L (98-107); Glucose 162 mg/dL (74-99); Lipase 140 U/L (23-300); Non-African American GFR(CKD) 88 (>60 ml/min/1.73 sqM); Potassium 3.8 mmol/L (3.5-5.1); Sodium 139 mmol/L (137-145); Total Bilirubin 1.2 mg/dL (0.2-1.3)
[2023-11-14 13:26] VITALS: RESP 16
[2023-11-14] MEDS: ACETAMINOPHEN IV (For NPO) 1,000 MG in EMPTY BAG 1 BAG IVPB STA (13:47)
--- NOTE | 2023-11-14 14:19 | CT ---
EXAMINATION TYPE: CT abdomen pelvis w con DATE OF EXAM: 11/14/2023 COMPARISON: NONE HISTORY: 72-year-old female abdominal pain TECHNIQUE: Contiguous axial scanning of the abdomen and pelvis following administration of 100 ml Iso zelalem 300 IV contrast. Delayed images through the kidneys and coronal/sagittal reconstructions perform ed. CT DLP: 1401.5 mGycm Automated exposure control for dose reduction was used. FINDINGS: The heart is normal size without pericardial effusion. Strandy atelectasis or scarring in the lower l ungs without pleural effusion. There is a small to moderate-sized hilar hernia present. Liver mildly enlarged at 18.2 cm with diminished attenuation. A 2.4 cm cyst central right liver lobe. Portal venous system is patent. Cholecystectomy clips. Bile duct dilated at 1.1 cm probably related to chronic postcholecystectomy status. Adrenal glands, left kidney, spleen, and pancreas within normal limits. Approximately 3 nonobstructive right renal calculi are present, largest measuring 6 mm. There is ada yed excretion of contrast from the right kidney with moderate hydronephrosis and perinephric edema. A 6 mm stone is present at the right ureteral orifice. No dilated small bowel, free fluid, or free air. No mesenteric or retroperitoneal lymphadenopathy. Normal appendix. Mild overall stool burden. Mild sigmoid diverticulosis. No pericolonic inflammatory change. Bladder is collapsed. Severely bulky and deformed fibroid uterus. Individual fibroids suspected to measure up to at least 6 cm. Suspect small bilateral ovaries. No abnormal fluid collection in the pelvis or pelvic lymphadeno tiana. Bones: Mild degenerative change of the hips. Facet arthropathy lower lumbar spine. IMPRESSION: 1. A 6 MM STONE AT THE RIGHT URETERAL ORIFICE WITH MODERATE OBSTRUCTIVE UROPATHY. 2. ADDITIONAL NONOBSTRUCTIVE RIGHT RENAL CALCULI MEASURING UP TO 6 MM 3. DEFORMED UTERUS SECONDARY TO BULKY FIBROID CHANGE. INDIVIDUAL FIBROIDS MEASURE UP TO AT LEAST 6 CM . 4. SMALL TO MODERATE-SIZED HIATAL HERNIA AND HEPATIC STEATOSIS.
[2023-11-14 14:41] LABS: Appearance,Urine Clear (Clear); Bilirubin,Urine Negative (Negative); Blood,Urine Moderate (Negative); Color,Urine Colorless; Glucose,Urine (UA) Negative (Negative); Ketones,Urine 2+ (Negative); Leukocyte Esterase,Urine Negative (Negative); Nitrite,Urine Negative (Negative); PH, Urine 7.5 (5.0-8.0); Protein,Urine Trace (Negative); RBC,Urine 137 /hpf (0-5); Specific Gravity,Urine 1.014 (1.001-1.035); Urobilinogen,Urine <2.0 mg/dL (<2.0); WBC,Urine 3 /hpf (0-5)
[2023-11-14] MEDS: KETOROLAC 15 MG/ML 1 ML VIAL IVP STA (16:17)
[2023-11-14 17:29] VITALS: BP 145/78; PULSE 74
== END 2023-11-14 17:05 | disposition home or self-care (01) ==
LOC: EC 11:05
DX: N20.0 Calculus of kidney (principal); Z88.0 Allergy status to penicillin; Z88.2 Allergy status to sulfonamides; Z91.018 Allergy to other foods; Z91.048 Other nonmedicinal substance allergy status
CPT/HCPCS: 36415; 93005; 80053; 82150; 83605; 83690; 85025; 81001; 74177; 99284; 96365; 96375 ×2; 96376; 96361 ×2; J2765; J0131; J1885; Q9967

== ENCOUNTER → 2023-11-23 | Outpatient (CLI) | payer MEDICARE ==
--- NOTE | 2023-11-23 13:24 | US ---
EXAMINATION TYPE: US kidneys/renal and bladder DATE OF EXAM: 11/23/2023 COMPARISON: CT 11/14/2023 CLINICAL INDICATION: Female, 73 years old with history of N20.0 CALCULUS OF KIDNEY; Symptoms have res olved EXAM MEASUREMENTS: Right Kidney: 10.9 x 4.7 x 5.3 cm Left Kidney: 10.4 x 5.0 x 6.0 cm Post Void Residual Volume: NA mL Right Kidney: Prominent renal pelvis; ? Calcifications seen throughout Left Kidney: ? Calcifications seen throughout Bladder: WNL Bilateral Jets seen: Yes Normal Post Void Residual: No There is no evidence for hydronephrosis at this point in time. No nephrolithiasis is seen. No arnold s are identified. The urinary bladder is anechoic. Bilateral ureteral jets are seen. Incidentals - simple right liver cyst; Multifibrotic uterus IMPRESSION: 1. No definite renal calcifications. 2. No solid renal mass or hydronephrosis.. 3. Normal appearing urinary bladder.
== END | disposition home or self-care (01) ==
LOC: RADUSWWP 09:54
PROVIDERS: ATTEND Urology
DX: N20.0 Calculus of kidney (principal)
CPT/HCPCS: 76770

== ENCOUNTER → 2024-04-08 | Outpatient (CLI) | payer MEDICARE ==
--- NOTE | 2024-04-08 13:20 | BD ---
EXAMINATION TYPE: Axial Bone Density DATE OF EXAM: 04/08/2024 CLINICAL HISTORY: 73 years old Female. ICD-10 CODE: Z78.0 ASYMPTOMATIC MENOPAUSAL Height: 62.5 Weight: 199.3 FRAX RISK QUESTIONS: Alcohol (3 or more units per day): no Family History (Parent hip fracture): no Glucocorticoids (More than 3mos): no (Ex: prednisone, prednisolone, methylprednisolone, dexamethasone, and hydrocortisone). History of Fracture in Adulthood: yes Secondary Osteoporosis: 1. Type 1 Diabetes: no 2. Hyperthyroidism: no 3. Menopause before 45: no 4. Malnutrition: no 5. Chronic liver disease: no Rheumatoid Arthritis: no Current Tobacco Use: no RISK FACTORS HISTORY OF: Hip Fracture (Right/Left): no Spine Fracture: no History of Wrist Fracture: no Surgery to Spine/Hip(right/left)/Wrist (right/left): no MEDICATIONS: Thyroid Medications: Levothyroxine How Long: past 10 years Osteoporosis Medications: no EXAM MEASUREMENTS: Bone mineral densitometry was performed using the [employer] System. Bone mineral density as measured about the Lumbar spine is: ----- L1-L4(G/cm2): 1.253 T Score Values are as follows: ----- L1: 0.7 ----- L2: 0.5 ----- L3: 0.5 ----- L4: 0.6 ----- L1-L4: 0.6 Z Score Values are as follows: ----- L1: 1.6 ----- L2: 1.4 ----- L3: 1.4 ----- L4: 1.5 ----- L1-L4: 1.5 Bone mineral density has: increased 3.7 % since study of: 04/04/2022 Bone mineral density about the R hip (g/cm2): 0.984 Bone mineral density about the L hip (g/cm2): 1.014 T Score values are as follows: -----R Neck: -1.0 -----L Neck: -0.7 -----R Total: -0.2 -----L Total: 0.1 Z Score values are as follows: -----R Neck: 0.4 -----L Neck: 0.7 -----R Total: 1.0 -----L Total: 1.5 Bone mineral density has: decreased -1.8 % since study of: 04/04/2022 FRAX%s: The graph provided illustrates a 13.8% chance for a major osteoporotic fx and a 1.8% chance f or the hips probability for fx in 10 years time. IMPRESSION: Normal (Values between +1 and -1 indicate normal bone mass). Consider repeating this study in 5 year s or sooner if there is some new clinical indication. NOTE: T-SCORE=SD OF THE YOUNG ADULT MEAN.
--- NOTE | 2024-04-08 13:57 | MM ---
Reason for Exam: Screening (asymptomatic). Last screening mammogram was performed 12 month(s) ago. Patient History: Menarche at age 10. First Full-Term at age 26. Postmenopausal. Patient has history of breast feeding. Other cancer, age 65. Risk Values: Armida 5 year model risk: 2.0%. NCI Lifetime model risk: 4.2%. Prior Study Comparison: 03/16/2021 Bilateral Diagnostic Mammogram, [facility]. 04/04/2022 Bilateral MG 3D screening mammo w/cad, [facility]. 04/05/2023 Bilateral MG 3D screening mammo w/cad, [facility]. Tissue Density: The breasts are almost entirely fatty. Findings: Analyzed By CAD. There is no suspicious group of microcalcifications or new suspicious mass in either breast. Overall Assessment: Benign, BI-RAD 2 Management: Screening Mammogram of both breasts in 1 year. . Patient should continue monthly self-breast exams. A clinical breast exam by your physician is recommended on an annual basis. This exam should not preclude additional follow-up of suspicious palpable abnormalities. Note on Armida scores and lifetime risk: 1. A Armida score greater than 3% is considered moderate risk. If this is the case, consider specialist referral to assess eligibility for a risk reducing agent. 2. If overall lifetime risk for the development of breast cancer is 20% or higher, the patient may qualify for future screening with alternating mammogram and breast MRI. Electronically signed and approved by: David Murphy M.D. Radiologis
== END | disposition home or self-care (01) ==
LOC: RADMAMWWP 08:56
PROVIDERS: ATTEND Family Medicine
DX: Z12.31 Encounter for screening mammogram for malignant neoplasm of breast (principal); Z78.0 Asymptomatic menopausal state
CPT/HCPCS: 77063; 77067; 77080